=== PATIENT | male | born 2000 | race Caucasian/White ===

== ENCOUNTER 2023-05-19 23:06 | Emergency (ER) | payer OTHER ==
[~2023-05-19] VITALS: Ht 180.3 cm; Wt 99.8 kg
[~2023-05-19 23:06] MED LIST: ACET325UDC; ACET500 PO; ACET80L; ALBU90I; ALBU90OI INH; ALBU90OI6 INH; AMPDEX5 PO; ARIP10 PO; BENZ1 PO; CEPH250A PO; Cleocin HCl300 MG PO; DEXA2 PO; EPIN.3I IM; EPIN0.15 IM; GLYCAS PR; IBUP200 PO; IBUP600 PO; LORA1 PO; MAGOXI400 PO; MERC50 PO; METTREX2.5 PO; OLAN2.5 PO; OLAN5 PO; OLAN7.5 PO; ONDA4 PO; ONDA4ODT MM; ONDA8ODT MM; OXYC5 PO; POLY17UD PO; PRED5 PO; PROM12.5S PR; PROM25 PO; Phenergan PO; RANI150 PO; RISP2 PO; RXONDA4ODT MM; RXPROM25 PO; RXSULTRIDS PO; SENN187 PO; SODCHL.65S; SULTRIDS PO; SULTRIEL PO
[2023-05-19 23:11] VITALS: BP 128/60
[2023-05-19] MEDS ORDERED: DIAZ2 PO (23:59)
[2023-05-19] MEDS ORDERED: Ibuprofen600 MG PO (23:59)
[2023-05-19] MEDS ORDERED: ACET500 PO (23:59)
== END 2023-05-20 00:28 | disposition home or self-care (01) ==
LOC: ER 23:06
DX: S16.1XXA Strain of muscle, fascia and tendon at neck level, initial encounter (principal); S29.012A Strain of muscle and tendon of back wall of thorax, initial encounter; V89.2XXA Person injured in unspecified motor-vehicle accident, traffic, initial encounter; Z88.0 Allergy status to penicillin; Z88.1 Allergy status to other antibiotic agents; Z79.899 Other long term (current) drug therapy
CPT/HCPCS: 90471; 99284-25; A9270